=== PATIENT | male | born 1985 | race Caucasian/White ===

== ENCOUNTER 2023-11-01 11:16 | Emergency (ER) | payer MEDICAID ==
[~2023-11-01] VITALS: Ht 160 cm; Wt 87.0 kg
[2023-11-01 11:19] VITALS: O2SAT 98
[2023-11-01 11:46] LABS: BASOPHILS % 0.7 % (0.0-2.0); CHLORIDE 105 mEq/L (98-107); EOSINOPHILS % 3.7 % (0.0-5.0); HEMATOCRIT. 47.2 % (42.0-52.0); HEMOGLOBIN. 16.1 g/dL (14.0-18.0); MEAN CORPUSCULAR HEMOGLOBIN 28.6 pg (28.0-32.0); MEAN CORPUSCULAR HGB CONC 34.1 g/dL (31.0-37.0); MEAN CORPUSCULAR VOLUME 83.7 fL (80.0-94.0); MEAN PLATELET VOLUME 8.9 fl (7.4-10.4); MONOCYTES % 8.1 % (2.0-8.0); NEUTROPHILS % 63.5 % (40.0-76.0); PLATELET 236 x1000/uL (130-400); RED BLOOD CELL COUNT 5.64 mill/uL (4.7-6.1); RED CELL DISTRIBUTION WIDTH 14.4 % (11.6-14.6); SODIUM 139 mEq/L (136-145); WHITE BLOOD COUNT 7.3 x1000/uL (4.5-11.0)
[2023-11-01 11:47] LABS: CALCIUM 9.5 mg/dL (8.7-10.4); CARBON DIOXIDE 28 mEq/L (21-32)
[2023-11-01 11:52] LABS: GLUCOSE 107 mg/dL (70-105)
[2023-11-01 11:53] LABS: UREA NITROGEN BLOOD 11 mg/dL (9-23)
[2023-11-01 11:54] LABS: ALANINE AMINOTRANSFERASE 200 IU/L (10-49); ALBUMIN 4.7 g/dL (3.2-4.8); ASPARTATE AMINOTRANSFERASE 61 IU/L (<34)
[2023-11-01 11:55] LABS: BILIRUBIN DIRECT 0.3 mg/dL (<=3.0); BILIRUBIN TOTAL 0.9 mg/dL (0.1-1.0); PROTEIN TOTAL 7.7 g/dL (6.0-8.3)
[2023-11-01 13:15] LABS: CLARITY URINE CLEAR (CLEAR); COLOR URINE DARK YELLOW (YELLOW); GLUCOSE URINE NEGATIVE (NEGATIVE); KETONES URINE NEGATIVE (NEGATIVE); LEUKOCYTE ESTERASE URINE NEGATIVE (NEGATIVE); NITRITE URINE NEGATIVE (NEGATIVE); OCCULT BLOOD URINE NEGATIVE (NEGATIVE); PH URINE 5.5 (4.5-8.0); PROTEIN URINE TRACE (NEGATIVE); SPECIFIC GRAVITY URINE 1.035 (1.005-1.030)
[2023-11-01] MEDS: HYDROCODONE/ACETAMINOPHEN 5/325MG TABLET PO ONE (13:42)
[2023-11-01] MEDS: ONDANSETRON 4MG ODT PO ONE (13:43)
[2023-11-01 13:54] LABS: MUCUS URINE 1+ /lpf (NONE/TRACE)
[2023-11-01 13:55] LABS: RBC URINE 0-2 /hpf (0-2); SQUAMOUS EPITHELIAL CELL URINE RARE /lpf (RARE/1+); WBC URINE 0-2 /hpf (0-2)
[2023-11-01 13:56] LABS: BACTERIA URINE TRACE
[2023-11-01] MEDS ORDERED: TOPUD MT (15:58)
[2023-11-01] MEDS ORDERED: ONDA4TAB50 MT (15:58)
[2023-11-01] MEDS ORDERED: PANT40SU MT (15:58)
[2023-11-01 16:14] VITALS: BP 128/74; PULSE 64; RESP 19; TEMP 97.8
== END 2023-11-01 16:26 | disposition home or self-care (01) ==
LOC: ER 11:16
DX: K29.70 Gastritis, unspecified, without bleeding (principal)
CPT/HCPCS: 99284; 76705; 80076; 80048; 81003; 85025; 36415; Q0162

== ENCOUNTER 2024-02-17 17:59 | Emergency (ER) | payer MEDICAID ==
[~2024-02-17] VITALS: Ht 167.6 cm; Wt 91.0 kg
[~2024-02-17 17:59] MED LIST: ONDA4TAB50 MT; PANT40SU MT; TOPUD MT
[2024-02-17 18:03] VITALS: O2SAT 100
[2024-02-17 18:20] VITALS: BP 124/83; PULSE 85; RESP 18; TEMP 98; O2SAT 99
[2024-02-17] MEDS ORDERED: AMOX1TAB16 MT (18:34)
[2024-02-17] MEDS ORDERED: IBUP-2029 MT (18:34)
== END 2024-02-17 18:47 | disposition home or self-care (01) ==
LOC: ER 17:59
DX: K04.7 Periapical abscess without sinus (principal); Z79.899 Other long term (current) drug therapy
CPT/HCPCS: 99283